=== PATIENT | male | born 1955 | race Caucasian/White ===

== ENCOUNTER 2023-10-07 21:12 | Inpatient (IN) | payer BC ==
[~2023-10-07] VITALS: Ht 167.6 cm; Wt 86.6 kg
[2023-10-07 21:43] LABS: BASOPHILS ABSOLUTE AUTO 0.08 K/mm3 (0.00-0.23); BASOPHILS PERCENT AUTO 1 % (0-2); EOSINOPHILS ABSOLUTE AUTO 0.39 K/mm3 (0.00-0.68); EOSINOPHILS PERCENT AUTO 4 % (0-6); Hematocrit 45.5 % (37.0-53.0); Hemoglobin 16.2 g/dL (13.5-17.5); IMMATURE GRAN ABSOLUTE AUTO 0.05 K/mm3 (0.00-0.10); IMMATURE GRAN PERCENT AUTO 1 % (0-1); LYMPHOCYTES ABSOLUTE AUTO 3.66 K/mm3 (0.84-5.20); LYMPHOCYTES PERCENT AUTO 42 % (21-46); MONOCYTES ABSOLUTE AUTO 0.76 K/mm3 (0.16-1.47); MONOCYTES PERCENT AUTO 9 % (4-13); Mean Corpuscular HGB 31.6 pg (26.0-34.0); Mean Corpuscular HGB Conc 35.6 g/dL (31.5-36.5); Mean Corpuscular Volume 89 fL (80-100); Mean Platelet Volume 10.5 fL (9.1-12.4); NEUTROPHILS ABSOLUTE AUTO 3.83 K/mm3 (1.96-9.15); NEUTROPHILS PERCENT AUTO 44 % (41-73); Platelet Count 233 K/mm3 (150-400); RDW Coefficient Variation 13.2 % (11.7-14.2); RDW Standard Deviation 42.9 fL (35.1-46.3); Red Blood Cell Count 5.12 M/mm3 (4.30-5.90); White Blood Cell Count 8.77 K/mm3 (4.00-11.30)
[2023-10-07 22:02] LABS: Albumin, Blood 3.7 g/dL (3.4-5.0); Bilirubin, Total 0.3 mg/dL (0.1-1.0); Bun/Creatinine Ratio 13.7 (12.0-20.0); Calcium, Blood 9.2 mg/dL (8.5-10.1); Creatinine, Blood 0.8 mg/dL (0.60-1.20); Globulin, Blood 3.8 g/dL (2.2-4.0); Potassium, Blood 3.5 mmol/L (3.5-5.5); Total Protein, Blood 7.5 g/dL (6.4-8.2)
[2023-10-07] MEDS ORDERED: Nitroglycerin 0.4 MG SUBL SL ONE (22:45)
[2023-10-08] VITALS (9 sets, daily range): BP systolic 124–147; BP diastolic 69–98
[2023-10-08] MEDS ORDERED: Nitroglycerin 0.4 MG SUBL SL PRN (00:45)
[2023-10-08 01:17] LABS: Anti-Xa UFH, PHA Monitoring <0.10 IU/mL; International Normalized Ratio 0.95; Prothrombin Time Results 10.2 Sec (9.7-11.5)
[2023-10-08] MEDS ORDERED: Heparin Sodium 5000 Units/ML 1ML MDV IV ONE (01:30)
[2023-10-08] MEDS ORDERED: Nicotine 21 MG PATCH TOP ONE (01:30)
[2023-10-08] MEDS ORDERED: Heparin Sodium,Porcine/0.5 NS 500 ML IV SCH (01:30)
[2023-10-08] MEDS ORDERED: Nicotine Polacrilex 2 MG Gum PO PRN (01:35)
[2023-10-08] MEDS ORDERED: Morphine Sulfate 4 MG/1 ML Injection IV PRN ×2 (01:35)
[2023-10-08] MEDS ORDERED: Nicotine 21 MG PATCH ONE (01:39)
[2023-10-08] MEDS ORDERED: Heparin Sodium 5000 Units/ML 1ML MDV ONE (01:49)
[2023-10-08 01:58] LABS: CHOL/HDL RATIO 5.4; Cholesterol 201 mg/dL (50-200); HDL Cholesterol 37 mg/dL (>39); LDL/HDL RATIO 2.6; Low Density Lipoprotein Chol 95 mg/dL (0-110); Triglycerides 343 mg/dL (30-160); Very Low Density Lipoprot Chol 68 mg/dL (6-32)
[2023-10-08] MEDS ORDERED: Aspirin 325 MG Tab PO ONE (02:00)
[2023-10-08] MEDS ORDERED: Aspirin 325 MG Tab ONE (02:13)
--- NOTE | 2023-10-08 06:46 | NUR ---
SHIFT SUMMARY PATIENT ARRIVED TO PCU 20 VIA STRETCHER AT 0422. HE IS ALERT AND ORIENTED X4, STEADY ON HIS FEET AND ABLE TO INDEPENDENTLY AMBULATE IN HIS ROOM. PATIENT REPORTS THAT HIS CHEST PAIN IS BASICALLY GONE. ON ROOM AIR WITH SPO2 >90%. VITAL SIGNS STABLE. HEPARIN DRIP INFUSING. WILL CONTINUE TO MONITOR. CALL LIGHT WITHIN REACH.
[2023-10-08] MEDS ORDERED: Nitroglycerin 1 INCH/GM PKT TOP SCH (07:34)
[2023-10-08] MEDS ORDERED: Dose Adjust by Pharmacy XX STA (08:57)
[2023-10-08] MEDS ORDERED: Metoprolol Succinate 25 MG TABCR PO SCH (09:00)
[2023-10-08] MEDS ORDERED: Atorvastatin 40 MG Tab PO SCH (09:00)
[2023-10-08] MEDS ORDERED: Aspirin 81 MG Chew PO SCH (09:00)
[2023-10-08] MEDS ORDERED: Heparin Sodium 1000 Units/ML 10ML MDV ONE ×2 (12:21→12:54)
[2023-10-08] MEDS ORDERED: NS 250 ML IV ONE (12:22)
[2023-10-08] MEDS ORDERED: NS 1,000 ML IV ONE ×2 (12:22→12:43)
[2023-10-08] MEDS ORDERED: NiCARdipine HCL 1,000 MCG/5 ML SYR ONE (12:22)
[2023-10-08] MEDS ORDERED: Nitroglycerin 2 MG/20 ML BTL ONE (12:22)
[2023-10-08] MEDS ORDERED: Midazolam HCl 1MG / ML 2ML Vial ONE (12:43)
[2023-10-08] MEDS ORDERED: FentaNYL Citrate 50 MCG/ML 2 ML Injection ONE (12:43)
[2023-10-08] MEDS ORDERED: Verapamil HCL 2.5 MG/ML 2ML Injection ONE (12:54)
[2023-10-08] MEDS ORDERED: Ticagrelor 90 MG TABLET ONE (13:24)
[2023-10-08] MEDS ORDERED: NS 1,000 ML IV SCH (14:10)
--- NOTE | 2023-10-08 16:19 | NUR ---
pt update pt to quality assurance lab technician this afternoon. Returned to room w/ 2 stents after procedure, r radial site. No bruising, no bleeding, no hematoma noted. Site soft. Arm board in place. Currently started deflating tr band- 2mls removed. No issues noted. Arm board in place. VSS.
--- NOTE | 2023-10-08 18:14 | NUR ---
SHIFT SUMMARY PT A&OX4. SP02>90% ON RA. TELEMETRY SHOWS NSR, HR 60'S-80'S. VSS. PT C/O OF 1/10 CP AT START OF SHIFT. CARDIOLOGY IN ROOM TO CONSULT. PT TO DICE MAKER THIS AFTERNOON. STENTS X2 PLACED. TR BAND ON R RADIAL, SEE PREVIOUS NOTE. UPON 2ND ATTEMPT TO REMOVE AIR, TR BAND STARTED OOZING. PRESSURE HELD, NOTIFIED, AIR REPLACED IN BAND. PT DENIES PAIN. EKG DONE POST ANGIO, SEE CHART. PT INDEPENDENT TO BATHROOM. NS INFUSING PER EMAR. CALL LIGHT IN REACH.
[2023-10-08] MEDS ORDERED: Losartan Potassium 25 MG Tab PO SCH (21:00)
[2023-10-08] MEDS ORDERED: Ticagrelor 90 MG TABLET PO SCH (21:00)
--- NOTE | 2023-10-09 01:59 | NUR ---
TR BAND COMPLETELY EMPTY OF AIR AT ABOUT ~0000. NO OOZING FROM SITE SINCE. SITE REMAINS WNL. BOARD REMAINS IN PLACE TO LIMIT MOTION OF RWR. NO PAIN REPORTED. CONTINUING TO MONITOR.
[2023-10-09 03:07] VITALS: BP 117/82
--- NOTE | 2023-10-09 04:35 | NUR ---
SHIFT SUMMARY. SHIFT HAS BEEN UNREMARKABLE. TR BAND REMOVED FROM RWR EARLY THIS MORNING, SITE REMAINS SOFT WITH NO APPARENT HEMATOMA, NO OOZING, NO PAIN. CIRCULATION REMAINS INTACT. ARM BOARD REMAINS IN PLACE TO RESTRICT MOVEMENT OF WRIST. PT HAS SLEPT THROUGHOUT MOST OF SHIFT. TELE ON THROUGHOUT SHIFT WITH NO ACUTE CHANGES OR EVENTS. VITALS STABLE THROUGHOUT SHIFT. INDEPENDENT TRANSFER AND CALLS APPROPRIATELY FOR ASSISTANCE. BED LOCKED IN LOWEST POSITION. CALL LIGHT LEFT WITHIN REACH. CONTINUING TO MONITOR.
[2023-10-09 05:24] LABS: BASOPHILS ABSOLUTE AUTO 0.06 K/mm3 (0.00-0.23); BASOPHILS PERCENT AUTO 1 % (0-2); EOSINOPHILS ABSOLUTE AUTO 0.22 K/mm3 (0.00-0.68); EOSINOPHILS PERCENT AUTO 2 % (0-6); Hematocrit 42.5 % (37.0-53.0); Hemoglobin 15.2 g/dL (13.5-17.5); IMMATURE GRAN ABSOLUTE AUTO 0.06 K/mm3 (0.00-0.10); IMMATURE GRAN PERCENT AUTO 1 % (0-1); LYMPHOCYTES ABSOLUTE AUTO 2.78 K/mm3 (0.84-5.20); LYMPHOCYTES PERCENT AUTO 28 % (21-46); MONOCYTES ABSOLUTE AUTO 0.96 K/mm3 (0.16-1.47); MONOCYTES PERCENT AUTO 10 % (4-13); Mean Corpuscular HGB Conc 35.8 g/dL (31.5-36.5); Mean Corpuscular Volume 90 fL (80-100); Mean Platelet Volume 10.7 fL (9.1-12.4); NEUTROPHILS ABSOLUTE AUTO 5.97 K/mm3 (1.96-9.15); NEUTROPHILS PERCENT AUTO 59 % (41-73); Platelet Count 229 K/mm3 (150-400); RDW Coefficient Variation 13.6 % (11.7-14.2); RDW Standard Deviation 44.5 fL (35.1-46.3); Red Blood Cell Count 4.75 M/mm3 (4.30-5.90); White Blood Cell Count 10.05 K/mm3 (4.00-11.30)
[2023-10-09 05:54] LABS: Bun/Creatinine Ratio 11.8 (12.0-20.0); Calcium, Blood 8.8 mg/dL (8.5-10.1); Creatinine, Blood 0.68 mg/dL (0.60-1.20); Potassium, Blood 3.8 mmol/L (3.5-5.5)
[2023-10-09 07:49] VITALS: BP 141/72
--- NOTE | 2023-10-09 08:54 | NUR ---
[place] of Care: Care assumed at 0700hr. Patient sleeping, easily roused to fully alert and oriented x4. Denies pain/discomfort, denies chest pain/pressure. Denies dyspnea/SOB. VSS, SpO2 98% on RA. Peripheral IV x1 patent and intact. Tolerating PO food and fluids without difficulty. Rt radial acces site with clear occlusive dressing in place. No signs of bleeding or hematoma. Dr. Lizama at bedside this morning, provided education to patient r/t diet, medications, and need to quit smoking. Dr. Lizama instructed patient ok to discharge home from cardiology stand-point. Awaiting rounding of hospitalist service. Call light in reach, makes needs known. Will continue to monitor.
[2023-10-09 12:16] VITALS: BP 134/90
--- NOTE | 2023-10-09 12:35 | NUR ---
ASSUMING CARE OF PT PRIMARY RN ON BREAK. VITALS WERE TAKEN AND IS STABLE. PT EATING LUNCH, DENIES ANY PAIN/PALPITATIONS/SOB. PT EXPECTING TO GO HOME TODAY, DR LA CAME AND ROUNDED ON PT AT THIS TIME. CALL LIGHTS IN REACH WILL CONTINUE TO MONITOR
[2023-10-09] MEDS ORDERED: ASPI81CH PO (13:15)
[2023-10-09] MEDS ORDERED: ATOR40TA PO (13:15)
[2023-10-09] MEDS ORDERED: METO25ER PO (13:16)
[2023-10-09] MEDS ORDERED: NICO21TP TOP (13:16)
[2023-10-09] MEDS ORDERED: NITR.4SL SL (13:16)
[2023-10-09] MEDS ORDERED: LOSA25 PO (13:16)
[2023-10-09] MEDS ORDERED: TICA90TA PO (13:17)
--- NOTE | 2023-10-09 13:43 | NUR ---
Discharge: Patient discharged to home at this time. This RN walked with patient to [facility] to await his ride from his nephew. Patient ambulated to [facility] without difficulty. VS remained stable before discharge, continued to deny and chest pain or discomfort. Belongings given to patient, including cigarettes and firearms inspector that were locked in lock box outside of room. Discharged medications faxed to [place] [facility]. Discharge instructions and medications reviewed with patient.
== END 2023-10-09 13:38 | disposition home or self-care (01) | DRG 322 ==
LOC: ER 21:12 → PCU 10-08 01:34
PROVIDERS: Family Medicine Adult Medicine; Internal Medicine Cardiovascular Disease; Student in an Organized Health Care Education/Training Program; ADMIT Student in an Organized Health Care Education/Training Program
PROC: 027135Z Dilation of Coronary Artery, Two Arteries with Two Drug-eluting Intraluminal Devices, Percutaneous Approach (ICD-10-PCS; principal; 2023-10-08)
PROC: B2111ZZ Fluoroscopy of Multiple Coronary Arteries using Low Osmolar Contrast (ICD-10-PCS; 2023-10-08)
PROC: B2111ZZ Fluoroscopy of Multiple Coronary Arteries using Low Osmolar Contrast (ICD-10-PCS; 2023-10-08)
DX: I21.4 Non-ST elevation (NSTEMI) myocardial infarction (principal); F17.210 Nicotine dependence, cigarettes, uncomplicated; I25.119 Atherosclerotic heart disease of native coronary artery with unspecified angina pectoris; R73.9 Hyperglycemia, unspecified; E78.2 Mixed hyperlipidemia; Z71.6 Tobacco abuse counseling
CPT/HCPCS: 36415; 71046; 76937; 80048; 80053; 80061; 83036; 84443; 84484; 85025; 85347; 85520; 85610; 85730; 93005; 93010; 93454; 94762; 99152; 99153; 99285-25; A9270; C1725; C1769; C1874; C1887; C1894; C8929; C9600; C9601; J1644; J2250; J3010; J7030; J7050; Q9957; Q9967